=== PATIENT | female | born 1995 ===

== ENCOUNTER 2024-10-10 23:58 | Inpatient (IN) | payer BC ==
[2024-10-11] MEDS ORDERED: Carboprost Tromethamine 250 MCG/1 ML Amp IM PRN (00:34)
[2024-10-11] MEDS ORDERED: Ondansetron 4 MG/2 ML SDV IVPUSH PRN (00:34)
[2024-10-11] MEDS ORDERED: Methylergonovine 0.2 MG/1 ML Amp IM PRN (00:34)
[2024-10-11] MEDS ORDERED: Sodium Chloride 0.9% 10 ML Syringe FLUSH PRN (00:34)
[2024-10-11] MEDS ORDERED: Tranexamic Acid 1,000 MG in Sodium Chloride 0.9% 100 ML IV PRN (00:34)
[2024-10-11] MEDS ORDERED: Acetaminophen 325 MG Tab PO PRN (00:34)
[2024-10-11] MEDS ORDERED: Misoprostol 100 MCG Tab RECTAL PRN (00:34)
[2024-10-11 00:43] LABS: HEMATOCRIT 34.2 % (37.0-47.0); HEMOGLOBIN 11.5 g/dL (12.0-16.0); MEAN CORPUSCULAR HEMOGLOBIN 27.8 pg (27.0-34.0); MEAN CORPUSCULAR HGB CONC 33.6 g/dL (33.0-35.0); MEAN CORPUSCULAR VOLUME 82.6 fL (80-100); RED BLOOD CELL COUNT 4.14 10^6/uL (4.2-5.4); WHITE BLOOD CELL COUNT,WBC 18.2 10^3/uL (5.0-10.0)
[2024-10-11] MEDS ORDERED: Penicillin G Potassium 3 MILLUNITS in Sodium Chloride 0.9% 100 ML IV SCH (00:45)
[2024-10-11] MEDS: ceFAZolin 2 GM Vial IVPUSH ONE (00:47)
[2024-10-11] MEDS: Lactated Ringers 1,000 ML IV ONE (00:47)
[2024-10-11] MEDS: Penicillin G Potassium 5 MILLUNITS in Sodium Chloride 0.9% 100 ML IV ONE (01:27)
[2024-10-11] MEDS: Lactated Ringers 1,000 ML IV SCH (01:30)
[2024-10-11] MEDS ORDERED: Oxytocin/Lactated Ringers 30 UNIT/500 ML BAG IV SCH (03:30)
[2024-10-11] MEDS: Oxytocin/Lactated Ringers 30 UNIT/500 ML BAG IV SCH (03:35)
[2024-10-11] MEDS ORDERED: Simethicone 80 MG Tab.Chew PO PRN (05:31)
[2024-10-11] MEDS ORDERED: Methylergonovine 0.2 MG Tab PO PRN (05:31)
[2024-10-11] MEDS ORDERED: Oxytocin 10 Units/1 ML SDV IM PRN (05:31)
[2024-10-11] MEDS: Ibuprofen 800 MG Tab PO SCH ×2 (06:21→06:39)
[2024-10-11] MEDS: Lidocaine 1% 30 ML SDV INJECT ONE (06:32)
[2024-10-11] MEDS: Acetaminophen 325 MG Tab PO PRN (06:40)
[2024-10-11] MEDS: Witch Hazel Medicated Pads 100/Jar TOP PRN (06:41)
[2024-10-11] MEDS: Benzocaine/Menthol 20%-0.5% Spray 78 GM Cannister TOP PRN (06:41)
[2024-10-11] MEDS: Docusate Sodium 100 MG Cap PO PRN (06:41)
[2024-10-11] MEDS: Prenatal Multivitamin with Calcium/Folic Acid/Iron Tab PO SCH (12:07)
[2024-10-12 07:27] LABS: HEMATOCRIT 35.6 % (37.0-47.0); HEMOGLOBIN 11.8 g/dL (12.0-16.0); MEAN CORPUSCULAR HGB CONC 33.1 g/dL (33.0-35.0); MEAN CORPUSCULAR VOLUME 84.6 fL (80-100); RED BLOOD CELL COUNT 4.21 10^6/uL (4.2-5.4)
== END 2024-10-12 14:39 | disposition home or self-care (01) | DRG 560 ==
LOC: DL.OBCHECK 23:58 → DL.OB 10-11 00:32 → OBSVTOIN 10-11 05:20
PROVIDERS: ADMIT Family Medicine; ATTEND Family Medicine
PROC: 10907ZC Drainage of Amniotic Fluid, Therapeutic from Products of Conception, Via Natural or Artificial Opening (ICD-10-PCS; principal; 2024-10-11)
PROC: 10E0XZZ Delivery of Products of Conception, External Approach (ICD-10-PCS; principal; 2024-10-11)
PROC: 3E0R3BZ Introduction of Anesthetic Agent into Spinal Canal, Percutaneous Approach (ICD-10-PCS; principal; 2024-10-11)
DX: O48.0 Post-term pregnancy (principal); Z37.0 Single live birth; O99.02 Anemia complicating childbirth; Z3A.40 40 weeks gestation of pregnancy; O99.824 Streptococcus B carrier state complicating childbirth; Z88.0 Allergy status to penicillin; Z88.2 Allergy status to sulfonamides; Z79.899 Other long term (current) drug therapy
CPT/HCPCS: 01967; 36415; 51702; 59409; 85027; A9270-GY; J0690; J2590; J7120